=== PATIENT | female | born 1985 | race Two or more races ===

== ENCOUNTER 2023-10-15 11:20 | Day surgery (SDC) | payer BC, MEDICAID ==
[2023-10-13 16:20] LABS: BASOPHILS % (AUTO) 0.3 % (0-1); EOSINOPHILS # (AUTO) 0.3 X10'3 (0-0.9); EOSINOPHILS % (AUTO) 3.3 % (0-6); LYMPHOCYTES # (AUTO) 3.3 X10'3 (1.1-4.8); LYMPHOCYTES % (AUTO) 35.6 % (21-51); MEAN CORPUSCULAR HEMOGLOBIN 28.6 PG (27.0-31.0); MEAN CORPUSCULAR HGB CONC 33.4 g/dL (33.0-36.5); MEAN CORPUSCULAR VOLUME 85.7 FL (78-98); MONOCYTES # (AUTO) 0.7 X10'3 (0-0.9); MONOCYTES % (AUTO) 7.7 % (2-12); NEUTROPHILS # (AUTO) 4.9 X10'3 (1.8-7.7); NEUTROPHILS % (AUTO) 53.1 % (42-75); PRE OP HEMATOCRIT 41.9 % (35.0-45.0); PRE OP PLATELET COUNT 589 X10'3 (140-440); PRE OP WHITE BLOOD COUNT 9.2 10'3 (4.8-10.8); RED BLOOD COUNT 4.89 X10'6 (4.20-5.60); RED CELL DISTRIBUTION WIDTH 13.9 % (11.5-14.5)
[2023-10-13 16:32] LABS: HCG SERUM QL NEGATIVE
[2023-10-13 16:40] LABS: ALBUMIN 3.3 G/DL (3.4-5.0); ALBUMIN/GLOBULIN RATIO 0.7 (1.1-1.5); ALKALINE PHOSPHATASE 54 IU/L (46-116); BLOOD UREA NITROGEN 10 MG/DL (7-18); BUN/CREATININE RATIO 13.2 (10.0-20.0); CALCIUM 8.9 MG/DL (8.5-10.1); CHLORIDE 104 MMOL/L (99-107); CREATININE 0.76 MG/DL (0.40-0.90); PRE OP ALT 26 U/L (30-65); PRE OP ANION GAP 13 (8-16); PRE OP AST 17 U/L (10-37); PRE OP BILIRUB, TOTAL 0.2 MG/DL (0.0-1.0); PRE OP GLUCOSE 97 MG/DL (70-104); PRE OP SODIUM 143 MMOL/L (135-145); TOTAL CARBON DIOXIDE 26.2 MMOL/L (24-32); TOTAL PROTEIN 7.9 G/DL (6.4-8.2); eGFR 84 ML/MIN
[2023-10-13 16:41] LABS: PRE OP POTASSIUM 3.3 MMOL/L (3.4-5.1)
[~2023-10-15] VITALS: Ht 160 cm; Wt 97.4 kg
[2023-10-15] VITALS (12 sets, daily range): BP systolic 112–136; BP diastolic 63–80; PULSE 62–96; RESP 10–17; TEMP 98.9; O2SAT 96–100
[2023-10-15] MEDS: cefazolin 2gm/D5W 100mL 100 ML IV ONE (05:30)
[~2023-10-15 11:20] MED LIST: ACYC-126 PO
[2023-10-15] MEDS: famotidine 20mg tablet PO ONE (12:08)
[2023-10-15] MEDS ORDERED: fentaNYL/PF 50MCG/1 ML 2ML syringe ONE ×2 (12:25→12:27)
[2023-10-15] MEDS ORDERED: rocuronium 10mg/ml inj IV ONE (12:25)
[2023-10-15] MEDS ORDERED: ondansetron/PF 4mg/2ml inj ONE (12:25)
[2023-10-15] MEDS ORDERED: neostigmine methylsulfate 1 MG/ML 10ml vial ONE (12:25)
[2023-10-15] MEDS ORDERED: midazolam 1 mg/ML 2ml injection ONE (12:25)
[2023-10-15] MEDS ORDERED: LIDOcaine 2% (20mg/ml) 5ml vial ONE (12:26)
[2023-10-15] MEDS ORDERED: propofol inj 20 ML IV ONE (12:26)
[2023-10-15] MEDS ORDERED: glycopyrrolate 0.2mg/ml inj ONE (12:26)
[2023-10-15] MEDS: ringers solution, lacted 1,000 ML IV SCH (12:29)
[2023-10-15] MEDS ORDERED: sevoflurane 250ml liquid IH ONE (12:42)
[2023-10-15] MEDS ORDERED: acetaminophen 1,000mg/100ml IV 100 ML IV ONE (12:55)
[2023-10-15] MEDS: LIDOcaine 1% (10mg/ml)w/preservative inj. 20ml MDV ONE (13:13)
[2023-10-15] MEDS: BUPIVAcaine/PF 2.5mg/ml (0.25%) 10ml vial ONE (13:13)
[2023-10-15] MEDS: BUPIVACAINE liposomal/PF 13.3 MG/ML vial IM ONE (13:15)
[2023-10-15] MEDS ORDERED: morphine 2 MG/ML inj. syringe IV PRN (13:20)
[2023-10-15] MEDS ORDERED: ringers solution, lacted 1,000 ML IV SCH (13:20)
[2023-10-15] MEDS ORDERED: fentaNYL/PF 50MCG/1 ML 2ML syringe IV PRN ×2 (13:20)
[2023-10-15] MEDS ORDERED: ondansetron/PF 4mg/2ml inj IV PRN (13:20)
[2023-10-15] MEDS ORDERED: morphine 4 MG/ML inj SYRINge IV PRN (13:20)
[2023-10-15] MEDS ORDERED: hydrALAZINE 20mg/ml inj. IV PRN (13:20)
[2023-10-15] MEDS ORDERED: labetalol 20mg/4ml (5mg/ml) syringe IV PRN (13:20)
== END 2023-10-15 15:22 | disposition home or self-care (01) ==
LOC: PRE-OP 11:20
PROVIDERS: ATTEND Surgery
DX: D48.61 Neoplasm of uncertain behavior of right breast (principal); Z79.899 Other long term (current) drug therapy; N64.89 Other specified disorders of breast
CPT/HCPCS: 19125; 36415; 76098; 80053; 82948; 84703; 85025; 93005; C9290; J0131; J0690; J1100; J2250; J2405; J2704; J2710; J3010; J3490; J7030; J7120; Z7506; Z7508; Z7512; A4215; A4618; A6258; A7000